=== PATIENT | male | born 2005 | race Caucasian/White ===

== ENCOUNTER 2024-05-13 09:55 | Emergency (ER) | payer SELFPAY ==
[2024-05-13 10:46] LABS: Acetaminophen Less than 10 mcg/mL (10.0-30.0); Alcohol Less than 10.0 mg/dL (Less than 10); Lipase 12 U/L (8-78); Magnesium 1.9 mg/dL (1.7-2.2); Salicylate Less than 8.0 mg/dL (15.0-30.0)
[2024-05-13 10:48] LABS: ALT (SGPT) 7 U/L (8-55); AST (SGOT) 14 U/L (5-34); Albumin 5.6 g/dL (3.5-5.0); Alkaline Phosphatase 131 U/L (50-130); BUN (Urea Nitrogen) 12 mg/dL (8.9-20.6); Bilirubin, Total 1.6 mg/dL (0.2-1.2); Calc. Creatinine Clearance 0 mL/min (70-130); Calcium 10.9 mg/dL (7.8-10.44); Carbon Dioxide 16 mmol/L (22-29); Estimated GFR 68; Globulin 3.6 g/dL (2.4-3.5); Glucose 120 mg/dL (70-105); Protein, Total 9.2 g/dL (6.0-8.3)
[2024-05-13 10:49] LABS: Troponin I Less than 0.010 ng/mL (< 0.028)
[2024-05-13 10:56] LABS: Band 1 % (5-11); Hematocrit 51.5 % (42.0-52.0); Hemoglobin 16.8 g/dL (14.0-18.0); Lymphocytes 8 % (28-48); MDiff Complete? YES; Mean Corpuscular HGB CONC 32.7 g/dL (32.0-36.0); Mean Corpuscular Hemoglobin 28.3 pg (25.0-35.0); Mean Corpuscular Volume 86.6 fl (78.0-98.0); Mean Platelet Volume 7.9 fL (7.4-10.4); Monocytes 4 % (0-4); Neutrophil 82 % (31-61); Platelet Count 399 10x3/uL (130-400); RBC Distribution Width 11.8 % (11.5-14.5); Red Blood Cell (RBC) Count 5.95 mill/uL (4.00-5.20); White Blood Cell (WBC) Count 15.5 10x3/uL (4.8-10.8)
[2024-05-13 10:57] LABS: Manual Diff?? YES; RBC Morph Comment Within Normal Limits; Reactive Lymphocytes 5 % (0-10)
[2024-05-13 10:58] LABS: Platelet Adequacy Comment Appears Adequate
[2024-05-13] MEDS ORDERED: Haloperidol Lactate 5 MG/ML VIAL ONE (11:10)
[2024-05-13] MEDS ORDERED: diphenhydrAMINE 50 MG/ML VIAL ONE (11:11)
[2024-05-13 11:13] LABS: Sodium 142 mmol/L (136-145)
[2024-05-13 11:14] LABS: Potassium 3.7 mmol/L (3.5-5.1)
[2024-05-13 11:15] LABS: Chloride 104 mmol/L (98-107)
[2024-05-13 11:16] LABS: Anion Gap 26 mmol/L (10-20)
[2024-05-13 13:13] LABS: Amphetamine Detected (NotDetected); Barbiturates Screen Not Detected (NotDetected); Benzodiazepine Screen Not Detected (NotDetected); Cocaine Metabolite Screen Not Detected (NotDetected); Methadone Not Detected (NotDetected); Methamphetamine Detected (NotDetected); Opiate Screen Not Detected (NotDetected); Oxycodone Screen Not Detected (NotDetected); Phencyclidine (PCP) Not Detected (NotDetected); THC/Cannabinoid Screen Detected (NotDetected); Tricyclic Screen Not Detected (NotDetected)
== END 2024-05-13 13:29 | disposition home or self-care (01) ==
LOC: MADERS 09:55
DX: R11.2 Nausea with vomiting, unspecified (principal); F15.10 Other stimulant abuse, uncomplicated; F17.210 Nicotine dependence, cigarettes, uncomplicated
CPT/HCPCS: 51701; 71045; 80053; 80306; 80307; 83690; 83735; 84484; 85025; 93005; 96361; 96372; 96374; J1200; J1630